=== PATIENT | female | born 1975 | race Caucasian/White ===

== ENCOUNTER 2016-12-11 12:16 | Emergency (ER) | payer SELFPAY ==
[2016-12-11] MEDS ORDERED: Adacel (T-DAP) 0.5 ML VIAL ONE (13:06)
[2016-12-11] MEDS ORDERED: Cephalexin 250 MG CAP ONE (13:16)
[2016-12-11] MEDS ORDERED: Acetaminophen/Codeine 30-300mg Tablet ONE (13:17)
--- NOTE | 2016-12-11 13:36 | RAD ---
EXAM: TWO VIEWS CALVARIUM: HISTORY: Forehead laceration. Hit right forehead on carport. Rust irrigated from the laceration. FINDINGS: Adequate aeration of the sinuses and mastoid air cells Visualized calvarium was intact. There is anterior soft tissue swelling. Radiopaque foreign bodies are not appreciated. IMPRESSION: No radiopaque foreign body. POS: [facility]
== END 2016-12-11 13:50 | disposition home or self-care (01) ==
LOC: NAV ERS 12:16
DX: S01.81XA Laceration without foreign body of other part of head, initial encounter (principal); J45.909 Unspecified asthma, uncomplicated; F17.210 Nicotine dependence, cigarettes, uncomplicated; Z23 Encounter for immunization; W22.8XXA Striking against or struck by other objects, initial encounter
CPT/HCPCS: 12013; 70250; 90471; 90715

== ENCOUNTER 2016-12-15 14:54 | Emergency (ER) | payer SELFPAY ==
[2016-12-15 16:02] LABS: #Basophils 0.1 thou/uL (0.0-0.2); #Eosinphils 0.2 thou/uL (0.0-0.7); #Monocytes 0.6 thou/uL (0.11-0.59); #Neutrophils 7.1 thou/uL (1.40-6.50); %Basophils 0.5 % (0.0-1.0); %Eosinophils 1.9 % (0.0-10.0); %Lymphocytes 19.7 % (21.0-51.0); %Monocytes 6.3 % (0.0-10.0); %Neutrophils 71.6 % (42.0-75.0); Hemoglobin 14.6 g/dL (12.0-16.0); Mean Corpuscular HGB CONC 33.3 g/dL (32.0-36.0); Mean Corpuscular Hemoglobin 31.1 pg (27.0-31.0); Mean Corpuscular Volume 93.4 fl (81.0-99.0); Mean Platelet Volume 5.6 fL (7.4-10.4); Platelet Count 363 thou/uL (130-400); Red Blood Cell (RBC) Count 4.71 mill/uL (4.20-5.40); White Blood Cell (WBC) Count 9.9 thou/uL (4.8-10.8)
[2016-12-15] MEDS ORDERED: Fentanyl 100 MCG/2 ML VIAL ONE (16:02)
[2016-12-15] MEDS ORDERED: Clindamycin 300 MG/2 ML VIAL ONE ×2 (16:03→16:07)
[2016-12-15] MEDS ORDERED: Ondansetron HCl/PF 4 MG/2 ML Vial ONE (16:03)
[2016-12-15] MEDS ORDERED: Sodium Chloride 0.9% 0 ML ONE (16:08)
[2016-12-15] MEDS ORDERED: Sodium Chloride 0.9% 100 ML ONE (16:09)
[2016-12-15 16:15] LABS: ALT (SGPT) 53 U/L (8-55); AST (SGOT) 34 U/L (5-34); Albumin 4.2 g/dL (3.5-5.0); Alkaline Phosphatase 67 U/L (40-150); Anion Gap 12 mmol/L (10-20); BUN (Urea Nitrogen) 11 mg/dL (7.0-18.7); Bilirubin, Total 0.4 mg/dL (0.2-1.2); Calc. Creatinine Clearance 0 mL/min (70-130); Calcium 9.1 mg/dL (7.8-10.44); Carbon Dioxide 24 mmol/L (22-29); Chloride 108 mmol/L (98-107); Estimated GFR-MDRD Greater than 90; Globulin 3.1 g/dL (2.4-3.5); Glucose 107 mg/dL (70-105); Potassium 3.9 mmol/L (3.5-5.1); Protein, Total 7.3 g/dL (6.0-8.3); Sodium 140 mmol/L (136-145)
--- NOTE | 2016-12-15 16:20 | CT ---
CT HEAD WITHOUT IV CONTRAST 12/15/16 HISTORY: Right forehead wound check. Patient is having headache with nausea. Patient walked into a carport fi ve days ago and hitting head. Patient said 12 hours ago he got out of bed and passed out. FINDINGS: There is a tiny low density focus in the left lentiform nucleus near the external capsule which may actually represent volume averaging and artifactual. There is no evidence of an acute cortical infar ction, hemorrhage, mass effect, or midline shift. Ventricle is normal in size, shape and position. M inimal mucosal thickening is present within sphenoid sinus. Mastoid air cells are clear. Calvarial s tructures are intact and there is no evidence of a fracture. Subcutaneous soft tissue swelling is se en in the right lateral supraorbital location near the level of the orbital roof. IMPRESSION: 1. No acute intracranial abnormalities demonstrated. 2. Scalp soft tissue swelling in the right lateral supraorbital location. POS: [facility]
[2016-12-15] MEDS ORDERED: HYDROcodone/Acetaminophen 10/325 mg Tablet ONE (16:49)
== END 2016-12-15 17:08 | disposition home or self-care (01) ==
LOC: NAV ERS 14:54
DX: S06.0X9A Concussion with loss of consciousness of unspecified duration, initial encounter (principal); L02.01 Cutaneous abscess of face; L03.211 Cellulitis of face; J45.909 Unspecified asthma, uncomplicated; F17.210 Nicotine dependence, cigarettes, uncomplicated; W22.8XXA Striking against or struck by other objects, initial encounter; Y93.02 Activity, running
CPT/HCPCS: 36415; 70450; 80053; 85025; 87070; 87077; 87186; 87205; 96365; 96375; J2405; J3010; J3490; J7050

== ENCOUNTER 2017-05-17 18:39 | Emergency (ER) | payer OTHER, SELFPAY ==
[~2017-05-17 18:39] MED LIST: Iopamidol 370 76% 100 ML VIAL ONE
[2017-05-17 19:02] LABS: Bilirubin Negative (Negative); Blood, Urine Negative (Negative); Clarity Clear (Clear); Glucose, Urine (Dipstick) Negative (Negative); Leukocyte Negative (Negative); Nitrite Negative (Negative); Protein, Urine (Dipstick) Negative (Neg-Trace); Specific Gravity, Urine 1.025 (1.005-1.030); pH, Urine 7.5 (5.0-9.0)
[2017-05-17 19:48] LABS: #Basophils 0.1 thou/uL (0.0-0.2); #Eosinphils 0.2 thou/uL (0.0-0.7); #Neutrophils 5.9 thou/uL (1.40-6.50); %Eosinophils 2.2 % (0.0-10.0); %Lymphocytes 29.7 % (21.0-51.0); %Monocytes 9.5 % (0.0-10.0); %Neutrophils 57.7 % (42.0-75.0); Hemoglobin 13.4 g/dL (12.0-16.0); Mean Corpuscular HGB CONC 34.1 g/dL (32.0-36.0); Mean Corpuscular Hemoglobin 31.3 pg (27.0-31.0); Mean Corpuscular Volume 91.7 fl (81.0-99.0); Mean Platelet Volume 6.3 fL (7.4-10.4); Platelet Count 329 thou/uL (130-400); RBC Distribution Width 11.1 % (11.5-14.5); Red Blood Cell (RBC) Count 4.28 mill/uL (4.20-5.40); White Blood Cell (WBC) Count 10.2 thou/uL (4.8-10.8)
[2017-05-17] MEDS ORDERED: Morphine 4 MG/ML Carpuject ONE (19:49)
[2017-05-17] MEDS ORDERED: Sodium Chloride 0.9% 1,000 ML ONE ×2 (19:49→22:15)
[2017-05-17] MEDS ORDERED: Pantoprazole 40 MG VIAL ONE (19:49)
[2017-05-17] MEDS ORDERED: Ondansetron HCl/PF 4 MG/2 ML Vial ONE (19:49)
[2017-05-17 20:01] LABS: Pregnancy Test - Urine (BHCG) Negative (Negative); Pregu Control Bar Appear? YES (CONTROL BAR); Specific Gravity 1.025 (1.002-1.036)
[2017-05-17 20:02] LABS: Pregu Control Background? CLEAR/WHITE (CLR/WHITE)
[2017-05-17 20:03] LABS: ALT (SGPT) 17 U/L (8-55); AST (SGOT) 16 U/L (5-34); Alkaline Phosphatase 52 U/L (40-150); Anion Gap 14 mmol/L (10-20); BUN (Urea Nitrogen) 15 mg/dL (7.0-18.7); Bilirubin, Total 0.2 mg/dL (0.2-1.2); Calc. Creatinine Clearance 0 mL/min (70-130); Chloride 107 mmol/L (98-107); Estimated GFR-MDRD Greater than 90; Globulin 2.9 g/dL (2.4-3.5); Glucose 71 mg/dL (70-105); Lipase 30 U/L (8-78); Potassium 3.6 mmol/L (3.5-5.1); Protein, Total 6.9 g/dL (6.0-8.3); Sodium 139 mmol/L (136-145)
[2017-05-17 20:04] LABS: Carbon Dioxide 22 mmol/L (22-29)
[2017-05-17 20:06] LABS: CKMB 0.7 ng/mL (0-6.6); Troponin I Less than 0.010 ng/mL (< 0.028)
[2017-05-17] MEDS ORDERED: Ketorolac Tromethamine 30 MG/ML VIAL ONE (21:30)
--- NOTE | 2017-05-17 23:50 | CT ---
EXAM ABDOMEN CT WITH CONTRAST PELVIC CT WITH CONTRAST 05/17/17 HISTORY: Right sided abdominal pain, worsening this afternoon. COMPARISON: None. TECHNIQUE: Abdomen and pelvic CT are performed with IV and enteric contrast. Coronal reformatted image are submi tted for interpretation. FINDINGS: ABDOMEN CT: Scarring or atelectasis in the lung bases. Heart size is within normal limits. No significant pericar dial fluid. The visualized aorta has a normal caliber. No periaortic fat stranding. Gallbladder is not appreciated. Intra and extrahepatic portal vein is patent. Calcified granulomas in the liver. Fatty infiltration of the liver near the falciform ligament. Splee n, and adrenal glands have appropriate enhancement. Nonspecific calcification near the proximal body of the pancreas. No evidence of peripancreatic inflammatory change. No gastrohepatic, retrocrural or periportal lymphadenopathy. No mesenteric mass, lymphadenopathy, free air of free fluid. Gastric mucosa, duodenum, and small bowel loops have an overall normal appearance and configuration. Ileocecal junction is normal. Normal caliber appendix. Scattered fecal material in a nondistended, no ndilated colon. No colon obstruction. Symmetric enhancement of the kidneys. Bilaterally, no obstructive uropathy. PELVIC CT: Urinary bladder is unremarkable. The uterus is surgically absent. No pelvic mass, lymphadenopathy, fr ee air or free fluid. Left ovarian follicle/cyst is noted, measuring 1.9 cm. Right ovarian cyst/folli kannan is also present measuring 1.4 cm. No lytic or blastic lesions in the osseous structures. Bilateral pars defects at L5 are noted. IMPRESSION: 1. No acute abnormality in the abdomen or pelvis. 2. Bilateral ovarian follicles/cysts. Followup ultrasound in 8 to 10 weeks to ensure resolution. POS: [facility]
== END 2017-05-17 23:07 | disposition home or self-care (01) ==
LOC: NAV ERS 18:39
DX: R10.11 Right upper quadrant pain (principal); J45.909 Unspecified asthma, uncomplicated; F17.210 Nicotine dependence, cigarettes, uncomplicated
CPT/HCPCS: 74177; 80053; 81003; 81025; 82553; 83605; 83690; 84484; 85025; 93005; 96361; 96374; 96375; C9113; J1885; J2270; J2405; J7050

== ENCOUNTER 2017-09-10 08:23 | Emergency (ER) | payer SELFPAY ==
--- NOTE | 2017-09-10 10:17 | RAD ---
THREE VIEWS LEFT HAND: HISTORY: Trauma. Injured 2nd digit 1 month ago. COMPARISON: None. FINDINGS: Joint space is preserved. No fracture. No cortical irregularity or periosteal reaction. IMPRESSION: Unremarkable left hand 3 views. POS: [facility]
== END 2017-09-10 09:50 | disposition home or self-care (01) ==
LOC: NAV ERS 08:23
DX: M19.142 Post-traumatic osteoarthritis, left hand (principal); T14.90XS Injury, unspecified, sequela; J45.909 Unspecified asthma, uncomplicated; F17.210 Nicotine dependence, cigarettes, uncomplicated; W22.03XS Walked into furniture, sequela

== ENCOUNTER 2017-09-12 20:18 | Emergency (ER) | payer SELFPAY ==
[2017-09-12] MEDS ORDERED: Ondansetron HCl/PF 4 MG/2 ML Vial ONE (20:51)
[2017-09-12] MEDS ORDERED: Morphine 4 MG/ML Carpuject ONE (20:51)
[2017-09-12 21:04] LABS: #Eosinphils 0.2 thou/uL (0.0-0.7); #Lymphocytes 2.6 thou/uL (1.20-3.40); #Monocytes 0.8 thou/uL (0.11-0.59); #Neutrophils 7.1 thou/uL (1.40-6.50); %Basophils 0.4 % (0.0-1.0); %Eosinophils 1.6 % (0.0-10.0); %Monocytes 7.1 % (0.0-10.0); %Neutrophils 66.9 % (42.0-75.0); Hemoglobin 14.4 g/dL (12.0-16.0); Mean Corpuscular HGB CONC 32.6 g/dL (32.0-36.0); Mean Corpuscular Hemoglobin 30.3 pg (27.0-31.0); Mean Corpuscular Volume 92.8 fl (81.0-99.0); Mean Platelet Volume 5.6 fL (7.4-10.4); Platelet Count 409 thou/uL (130-400); RBC Distribution Width 11.8 % (11.5-14.5); Red Blood Cell (RBC) Count 4.74 mill/uL (4.20-5.40); White Blood Cell (WBC) Count 10.6 thou/uL (4.8-10.8)
[2017-09-12 21:13] LABS: Bilirubin Moderate (Negative); Blood, Urine Negative (Negative); Glucose, Urine (Dipstick) Negative (Negative); Leukocyte Negative (Negative); Nitrite Negative (Negative); Protein, Urine (Dipstick) 30 mg/dL (Neg-Trace); Urobilinogen 0.2 mg/dL (0.2-1.0); pH, Urine 5.5 (5.0-9.0)
[2017-09-12 21:14] LABS: Clarity SL HAZY (Clear)
[2017-09-12 21:15] LABS: Pregnancy Test - Urine (BHCG) Negative (Negative); Pregu Control Background? CLEAR/WHITE (CLR/WHITE); Pregu Control Bar Appear? YES (CONTROL BAR); Specific Gravity 1.033 (1.002-1.036)
[2017-09-12 21:16] LABS: Specific Gravity, Urine 1.033 (1.002-1.036)
[2017-09-12 21:19] LABS: ALT (SGPT) 24 U/L (8-55); AST (SGOT) 19 U/L (5-34); Alkaline Phosphatase 52 U/L (40-150); Anion Gap 13 mmol/L (10-20); BUN (Urea Nitrogen) 14 mg/dL (7.0-18.7); Bilirubin, Total 0.2 mg/dL (0.2-1.2); Calc. Creatinine Clearance 0 mL/min (70-130); Calcium 8.8 mg/dL (7.8-10.44); Carbon Dioxide 21 mmol/L (22-29); Chloride 108 mmol/L (98-107); Estimated GFR-MDRD 88; Globulin 2.8 g/dL (2.4-3.5); Glucose 118 mg/dL (70-105); Protein, Total 6.8 g/dL (6.0-8.3); Sodium 138 mmol/L (136-145)
[2017-09-12 21:28] LABS: Bacteria/HPF Rare-Few HPF (None Seen)
[2017-09-12 21:29] LABS: Crystals/HPF 2+ CA OXALATE HPF (Negative)
[2017-09-12 21:37] LABS: CKMB 0.6 ng/mL (0-6.6); Troponin I Less than 0.010 ng/mL (< 0.028)
--- NOTE | 2017-09-12 22:07 | RAD ---
PORTABLE CHEST: 09/12/2017 PROVIDED CLINICAL HISTORY: Chest pain. FINDINGS: The cardiac and mediastinal silhouette is within normal limits. The lungs appear clear. There is no pleural fluid or pneumothorax apparent. IMPRESSION: No evidence for an acute cardiopulmonary process. POS: [facility]
[2017-09-12] MEDS ORDERED: Lorazepam 2 MG/ML VIAL ONE (22:30)
== END 2017-09-13 00:55 | disposition home or self-care (01) ==
LOC: NAV ERS 20:18
DX: R07.2 Precordial pain (principal); F17.210 Nicotine dependence, cigarettes, uncomplicated; J45.909 Unspecified asthma, uncomplicated
CPT/HCPCS: 71045; 80053; 81003; 81015; 81025; 82553; 84484; 85025; 93005; 96374; 96375; J2060; J2270; J2405

== ENCOUNTER 2017-10-07 22:45 | Emergency (ER) | payer SELFPAY ==
[2017-10-07] MEDS ORDERED: Sodium Chloride 0.9% 1,000 ML ONE (23:09)
[2017-10-07] MEDS ORDERED: Ondansetron HCl/PF 4 MG/2 ML Vial ONE ×2 (23:21→23:47)
[2017-10-07 23:39] LABS: BHCG - Serum Negative (NEGATIVE); Pregs Control Bar Appear? YES (CONTROL BAR)
[2017-10-07 23:44] LABS: Band 37 % (5-11); Hemoglobin 16.3 g/dL (12.0-16.0); Lymphocytes 9 % (21-51); MDiff Complete? YES; Mean Corpuscular HGB CONC 32.2 g/dL (32.0-36.0); Mean Corpuscular Hemoglobin 30.2 pg (27.0-31.0); Mean Corpuscular Volume 93.6 fl (81.0-99.0); Mean Platelet Volume 5.6 fL (7.4-10.4); Metamyelocyte 4 % (0-0); Monocytes 5 % (0-10); Neutrophil 45 % (42-75); PLT Morphology Comment Appears Adequate; Platelet Count 436 thou/uL (130-400); RBC Distribution Width 11.5 % (11.5-14.5); RBC Morphology Normal; Red Blood Cell (RBC) Count 5.41 mill/uL (4.20-5.40); White Blood Cell (WBC) Count 25.7 thou/uL (4.8-10.8)
[2017-10-07 23:48] LABS: ALT (SGPT) 24 U/L (8-55); AST (SGOT) 20 U/L (5-34); Albumin 4.3 g/dL (3.5-5.0); Alkaline Phosphatase 54 U/L (40-150); Anion Gap 15 mmol/L (10-20); BUN (Urea Nitrogen) 12 mg/dL (7.0-18.7); Bilirubin, Total 0.3 mg/dL (0.2-1.2); Calc. Creatinine Clearance 0 mL/min (70-130); Calcium 9.3 mg/dL (7.8-10.44); Carbon Dioxide 20 mmol/L (22-29); Chloride 107 mmol/L (98-107); Estimated GFR-MDRD Greater than 90; Glucose 104 mg/dL (70-105); Lipase 53 U/L (8-78); Potassium 3.9 mmol/L (3.5-5.1); Protein, Total 7.3 g/dL (6.0-8.3); Sodium 138 mmol/L (136-145)
[2017-10-08] MEDS ORDERED: Metoclopramide HCl 10 MG/2 ML VIAL ONE (00:56)
[2017-10-08] MEDS ORDERED: Sodium Chloride 0.9% 1,000 ML ONE (01:10)
== END 2017-10-08 02:07 | disposition home or self-care (01) ==
LOC: NAV ERS 22:45
DX: K52.9 Noninfective gastroenteritis and colitis, unspecified (principal); J45.909 Unspecified asthma, uncomplicated; F17.210 Nicotine dependence, cigarettes, uncomplicated
CPT/HCPCS: 80053; 83690; 84703; 85025; 96361; 96374; 96375; J2405; J2765; J7050

== ENCOUNTER 2018-01-02 13:31 | Emergency (ER) | payer SELFPAY | END 2018-01-02 14:28 | disposition home or self-care (01) | LOC: NAV ERS 13:31 | DX: M54.2 Cervicalgia (principal); G89.29 Other chronic pain; J45.909 Unspecified asthma, uncomplicated; F17.210 Nicotine dependence, cigarettes, uncomplicated | CPT/HCPCS: 96372; J2270 ==

== ENCOUNTER 2018-02-08 20:08 | Emergency (ER) | payer SELFPAY ==
[2018-02-08] MEDS ORDERED: traMADol HCl 50 MG TAB ONE (20:57)
[2018-02-08] MEDS ORDERED: Ondansetron ODT 4 MG TAB ONE (20:57)
[2018-02-08] MEDS ORDERED: Ketorolac Tromethamine 60 MG/2 ML VIAL ONE (20:57)
--- NOTE | 2018-02-08 21:45 | CT ---
CT LUMBAR SPINE WITHOUT CONTRAST 02/08/18 HISTORY: Patient woke up one day with a pinched nerve. Patient went to urgent care yesterday. Received medicat ion. Worsening symptoms. Pain. FINDINGS: Retroperitoneal structures are unremarkable. The visualized alimentary canal is unremarkable. Hypoden sity in the right adnexa, incompletely evaluated measures 3.5 cm and has an attenuation coefficient o f 9 Hounsfield units. A right ovarian cyst is suspected. There is no abnormality with regards to the presacral fat. Sacral ala are preserved. Sacroiliac joints are patent and symmetric. The spinous process and transverse processes are intact. Lumbar spine vertebral body height is mainta ined. There is no lumbar spine fracture. There are bilateral pars defects at L5, chronic. There is 3 mm of anterolisthesis of L5 upon S1. Limited evaluation of the contents of the central spinal canal and neural foramina due to technique. T11-T12 and T12-L1: No high grade central canal stenosis or high grade foraminal narrowing. L1-L2: No high grade central canal stenosis or high grade foraminal narrowing. L2-L3: No high grade central canal stenosis or high grade foraminal narrowing. L3-L4: No high grade central canal stenosis or high grade foraminal narrowing. L4-L5: No high grade central canal stenosis or high grade foraminal narrowing. L5-S1: No high grade central canal stenosis. Right neural foramen is patent. There is moderate left f oraminal narrowing predominantly due to disc material. Disc material also abuts the extraforaminal le ft L5 nerve root. IMPRESSION: 1. Bilateral pars defects at L5 with grade I anterolisthesis of L5 upon S1. 2. No significant central canal stenosis. There is moderate left foraminal narrowing at L5-S1 du e to disc material. 3. Right hemipelvic hypodensity likely representing an ovarian cyst. POS: [facility]
== END 2018-02-08 22:25 | disposition home or self-care (01) ==
LOC: NAV ERS 20:08
DX: M51.36 Other intervertebral disc degeneration, lumbar region (principal); M43.06 Spondylolysis, lumbar region; J45.909 Unspecified asthma, uncomplicated; F17.210 Nicotine dependence, cigarettes, uncomplicated; Z79.899 Other long term (current) drug therapy
CPT/HCPCS: 72131; 96372; J1885; J2270; Q0162

== ENCOUNTER 2018-04-25 08:22 | Emergency (ER) | payer SELFPAY | END 2018-04-25 08:53 | disposition home or self-care (01) | LOC: NAV ERS 08:22 | DX: R05 Cough (principal); J45.909 Unspecified asthma, uncomplicated; F17.210 Nicotine dependence, cigarettes, uncomplicated; Z79.51 Long term (current) use of inhaled steroids | CPT/HCPCS: 99283 ==

== ENCOUNTER 2018-08-13 17:23 | Emergency (ER) | payer OTHER ==
--- NOTE | 2018-08-13 18:15 | RAD ---
4 views right elbow: 08/13/2018 COMPARISON: None HISTORY: Injury, trauma, pain FINDINGS: No elbow joint effusion, displaced fracture, or evidence of dislocation. IMPRESSION: No acute findings.
--- NOTE | 2018-08-13 18:17 | RAD ---
Right hand 3 views: 08/13/2018 COMPARISON: None HISTORY: Fall, trauma, pain FINDINGS: No fracture or evidence of dislocation. No radiopaque foreign body or subcutaneous gas. IMPRESSION: No acute osseous abnormality.
== END 2018-08-13 18:38 | disposition home or self-care (01) ==
LOC: NAV ERS 17:23
DX: S50.01XA Contusion of right elbow, initial encounter (principal); S60.221A Contusion of right hand, initial encounter; F17.210 Nicotine dependence, cigarettes, uncomplicated; W19.XXXA Unspecified fall, initial encounter

== ENCOUNTER 2018-10-31 17:28 | Emergency (ER) | payer OTHER, SELFPAY ==
--- NOTE | 2018-10-31 17:53 | RAD ---
XR Hand Rt 3 View STANDARD: 10/31/2018 5:36 PM CLINICAL INDICATION: Injury with pain COMPARISON: 08/13/2018 FINDINGS: Fracture:No fracture. Arthropathy:None of significance. Incidental findings:None of significance. IMPRESSION: 1. No acute osseous abnormality.
== END 2018-10-31 18:03 | disposition home or self-care (01) ==
LOC: NAV ERS 17:28
DX: S63.91XA Sprain of unspecified part of right wrist and hand, initial encounter (principal); J45.909 Unspecified asthma, uncomplicated; F17.210 Nicotine dependence, cigarettes, uncomplicated; W19.XXXA Unspecified fall, initial encounter

== ENCOUNTER 2018-11-21 17:14 | Emergency (ER) | payer SELFPAY ==
[2018-11-21 17:35] LABS: #Basophils 0.1 thou/uL (0.0-0.2); #Eosinphils 0.2 thou/uL (0.0-0.7); #Lymphocytes 2.3 thou/uL (1.20-3.40); #Monocytes 0.6 thou/uL (0.11-0.59); #Neutrophils 4.9 thou/uL (1.40-6.50); %Basophils 0.9 % (0.0-1.0); %Eosinophils 2.3 % (0.0-10.0); %Lymphocytes 28.3 % (21.0-51.0); %Monocytes 7.3 % (0.0-10.0); %Neutrophils 61.2 % (42.0-75.0); Hemoglobin 13.2 g/dL (12.0-16.0); Mean Corpuscular HGB CONC 32.1 g/dL (32.0-36.0); Mean Corpuscular Hemoglobin 30.2 pg (27.0-31.0); Mean Corpuscular Volume 93.9 fL (78.0-98.0); Mean Platelet Volume 5.3 fL (7.4-10.4); Platelet Count 357 thou/uL (130-400); RBC Distribution Width 11.7 % (11.5-14.5); Red Blood Cell (RBC) Count 4.38 mill/uL (4.20-5.40)
[2018-11-21] MEDS ORDERED: Sodium Chloride 0.9% 1,000 ML ONE ×2 (17:46→19:01)
[2018-11-21] MEDS ORDERED: Nitroglycerin 2% Ointment 1 INCH/1 GM Packet ONE (17:46)
[2018-11-21] MEDS ORDERED: Acetaminophen 500 MG TAB ONE (17:46)
[2018-11-21 18:02] LABS: ALT (SGPT) 32 U/L (8-55); AST (SGOT) 26 U/L (5-34); Albumin 4.1 g/dL (3.5-5.0); Alkaline Phosphatase 54 U/L (40-150); Anion Gap 15 mmol/L (10-20); BUN (Urea Nitrogen) 15 mg/dL (7.0-18.7); Bilirubin, Total 0.3 mg/dL (0.2-1.2); Calc. Creatinine Clearance 0 mL/min (70-130); Calcium 9.3 mg/dL (7.8-10.44); Carbon Dioxide 23 mmol/L (22-29); Chloride 106 mmol/L (98-107); Estimated GFR-MDRD 85; Globulin 2.2 g/dL (2.4-3.5); Glucose 97 mg/dL (70-105); Potassium 3.8 mmol/L (3.5-5.1); Protein, Total 6.3 g/dL (6.0-8.3); Sodium 140 mmol/L (136-145)
--- NOTE | 2018-11-21 18:17 | RAD ---
EXAM: CHEST ONE VIEW: 11/21/18 HISTORY: Chest pain. COMPARISON: 09/12/17. FINDINGS: The left costophrenic angle is not completely included. Heart size is normal. The lungs are clear. No pneumonia, edema, pleural effusions, or other acute process. IMPRESSION: No acute intrathoracic disease. Stable from prior study. POS: [facility]
[2018-11-21] MEDS ORDERED: Morphine 4 MG/ML VIAL ONE (19:01)
[2018-11-21] MEDS ORDERED: Famotidine/PF 20 mg/2ml Vial ONE (19:15)
[2018-11-21] MEDS ORDERED: Lidocaine 2% Jelly 30 GM TUBE ONE (19:15)
[2018-11-21] MEDS ORDERED: Mag-Al Plus 1200 MG/1200 MG/120 MG/30 ML UDCUP ONE (19:15)
[2018-11-21] MEDS ORDERED: Lidocaine Viscous Sol 2% 15 ml UD Cup ONE (19:17)
== END 2018-11-21 19:29 | disposition short-term general hospital (02) ==
LOC: NAV ERS 17:14
DX: R07.2 Precordial pain (principal); I10 Essential (primary) hypertension; R42 Dizziness and giddiness; J45.909 Unspecified asthma, uncomplicated; F17.210 Nicotine dependence, cigarettes, uncomplicated
CPT/HCPCS: 71045; 80053; 84484; 85025; 85379; 93005; 94760; 96361; 96374; 96375; J2270; J7050; S0028

== ENCOUNTER 2019-01-23 18:46 | Emergency (ER) | payer SELFPAY ==
[2019-01-23] MEDS ORDERED: Ketorolac Tromethamine 60 MG/2 ML VIAL ONE (19:09)
--- NOTE | 2019-01-23 19:12 | RAD ---
EXAM: Left hip: 2 views INDICATIONS: Hip injury COMPARISON: None. FINDINGS: No fracture or dislocation. No osseous abnormality identified. IMPRESSION: No acute finding
== END 2019-01-23 19:40 | disposition home or self-care (01) ==
LOC: NAV ERS 18:46
DX: M25.552 Pain in left hip (principal); J45.909 Unspecified asthma, uncomplicated; F17.210 Nicotine dependence, cigarettes, uncomplicated; X50.9XXA Other and unspecified overexertion or strenuous movements or postures, initial encounter
CPT/HCPCS: 96372; J1885

== ENCOUNTER 2019-03-03 08:26 | Emergency (ER) | payer SELFPAY | END 2019-03-03 10:09 | disposition home or self-care (01) | LOC: NAV ERS 08:26 | DX: J11.1 Influenza due to unidentified influenza virus with other respiratory manifestations (principal); J45.909 Unspecified asthma, uncomplicated; F17.210 Nicotine dependence, cigarettes, uncomplicated ==

== ENCOUNTER 2019-05-19 21:20 | Emergency (ER) | payer SELFPAY ==
[2019-05-19] MEDS ORDERED: Ketorolac Tromethamine 60 MG/2 ML VIAL ONE (21:34)
== END 2019-05-19 22:00 | disposition home or self-care (01) ==
LOC: NAV ERS 21:20
DX: M77.11 Lateral epicondylitis, right elbow (principal); F17.210 Nicotine dependence, cigarettes, uncomplicated; J45.909 Unspecified asthma, uncomplicated
CPT/HCPCS: 96372; 99283; J1885

== ENCOUNTER 2019-05-24 14:40 | Emergency (ER) | payer SELFPAY ==
[2019-05-24] MEDS ORDERED: Aspirin Chewable 81 MG TAB ONE (14:59)
[2019-05-24 15:31] LABS: #Basophils 0.1 thou/uL (0.0-0.2); #Eosinphils 0.2 thou/uL (0.0-0.7); #Lymphocytes 2.3 thou/uL (1.20-3.40); #Monocytes 0.4 thou/uL (0.11-0.59); #Neutrophils 5.2 thou/uL (1.40-6.50); %Basophils 0.9 % (0.0-1.0); %Lymphocytes 27.7 % (21.0-51.0); %Monocytes 5.3 % (0.0-10.0); %Neutrophils 63.2 % (42.0-75.0); Mean Corpuscular HGB CONC 32.8 g/dL (32.0-36.0); Mean Corpuscular Hemoglobin 30.9 pg (27.0-31.0); Mean Corpuscular Volume 94.2 fL (78.0-98.0); Mean Platelet Volume 5.4 fL (7.4-10.4); Platelet Count 380 thou/uL (130-400); RBC Distribution Width 11.6 % (11.5-14.5); Red Blood Cell (RBC) Count 4.53 mill/uL (4.20-5.40); White Blood Cell (WBC) Count 8.2 thou/uL (4.8-10.8)
[2019-05-24] MEDS ORDERED: Acetaminophen 325 MG TAB ONE (15:34)
--- NOTE | 2019-05-24 15:43 | RAD ---
EXAM: Chest one view: HISTORY: Chest pain COMPARISON: 11/21/2018 FINDINGS: Heart size: Within normal limits. Lungs: Clear of acute process. No evidence for confluent pneumonia, pleural effusion, acute edema, or pneumothorax, or other signifi cant acute process. IMPRESSION: No significant acute intrathoracic disease.
[2019-05-24 15:47] LABS: ALT (SGPT) 29 U/L (8-55); AST (SGOT) 26 U/L (5-34); Albumin 4.5 g/dL (3.5-5.0); Alkaline Phosphatase 54 U/L (40-110); Anion Gap 15 mmol/L (10-20); BUN (Urea Nitrogen) 9 mg/dL (7.0-18.7); Bilirubin, Total 0.2 mg/dL (0.2-1.2); Calc. Creatinine Clearance 0 mL/min (70-130); Calcium 9.5 mg/dL (7.8-10.44); Carbon Dioxide 22 mmol/L (22-29); Chloride 108 mmol/L (98-107); Estimated GFR-MDRD 85; Globulin 2.7 g/dL (2.4-3.5); Glucose 106 mg/dL (70-105); Lipase 45 U/L (8-78); Potassium 4.1 mmol/L (3.5-5.1); Protein, Total 7.2 g/dL (6.0-8.3); Sodium 141 mmol/L (136-145)
[2019-05-24] MEDS ORDERED: Ketorolac Tromethamine 30 MG/ML VIAL ONE (17:43)
[2019-05-24 18:30] LABS: Troponin I Less than 0.010 ng/mL (< 0.028)
== END 2019-05-24 18:53 | disposition home or self-care (01) ==
LOC: NAV ERS 14:40
DX: R07.9 Chest pain, unspecified (principal); R06.00 Dyspnea, unspecified; R79.89 Other specified abnormal findings of blood chemistry; J45.909 Unspecified asthma, uncomplicated; F17.210 Nicotine dependence, cigarettes, uncomplicated
CPT/HCPCS: 71045; 80053; 83690; 83880; 84484; 85025; 85379; 93005; 96374; J1885

== ENCOUNTER 2019-07-01 16:23 | Emergency (ER) | payer OTHER, SELFPAY ==
--- NOTE | 2019-07-01 17:22 | RAD ---
XR Chest Pa Lat STANDARD History: Cough Comparison: Radiograph May 24, 2019 Findings: Lungs are clear. No pneumothorax. No effusion. Cardiac silhouette and mediastinal contours are within normal limits. No acute osseous abnormality. Low-grade levoscoliosis. Impression: No acute intrathoracic abnormality.
== END 2019-07-01 17:54 | disposition home or self-care (01) ==
LOC: NAV ERS 16:23
DX: J20.9 Acute bronchitis, unspecified (principal); F17.210 Nicotine dependence, cigarettes, uncomplicated; Z87.01 Personal history of pneumonia (recurrent)
CPT/HCPCS: 71046

== ENCOUNTER 2019-07-09 17:32 | Emergency (ER) | payer MEDICARE, OTHER ==
[2019-07-09] MEDS ORDERED: Ventolin HFA Inhaler 60 PUFF INHALER ONE (18:11)
[2019-07-09] MEDS ORDERED: Sodium Chloride 0.9% 1,000 ML ONE (18:12)
[2019-07-09] MEDS ORDERED: Aspirin Chewable 81 MG TAB ONE (18:27)
[2019-07-09 18:32] LABS: Bilirubin Negative (Negative); Blood, Urine Trace (Negative); Clarity Clear (Clear); Glucose, Urine (Dipstick) Negative (Negative); Leukocyte Negative (Negative); Nitrite Negative (Negative); Protein, Urine (Dipstick) Negative (Neg-Trace); Urobilinogen 0.2 mg/dL (Less than 2)
--- NOTE | 2019-07-09 18:32 | RAD ---
RADIOGRAPH CHEST 1 VIEW: 07/09/19, 6:22 P.M. HISTORY: 43-year-old female with dyspnea and mid sternal chest pain with productive cough. FINDINGS: There are no air space densities, pulmonary edema, pneumothorax, or cardiomegaly. The lateral costop hrenic angles are sharp. IMPRESSION: No acute cardiopulmonary findings. jn [] POS: [facility]
[2019-07-09 18:33] LABS: ALT (SGPT) 31 U/L (8-55); AST (SGOT) 19 U/L (5-34); Albumin 4.3 g/dL (3.5-5.0); Alkaline Phosphatase 60 U/L (40-110); Anion Gap 15 mmol/L (10-20); BUN (Urea Nitrogen) 15 mg/dL (7.0-18.7); Bilirubin, Total 0.4 mg/dL (0.2-1.2); Calc. Creatinine Clearance 0 mL/min (70-130); Calcium 9.3 mg/dL (7.8-10.44); Carbon Dioxide 24 mmol/L (22-29); Chloride 105 mmol/L (98-107); Estimated GFR-MDRD 76; Glucose 125 mg/dL (70-105); Potassium 4.2 mmol/L (3.5-5.1); Protein, Total 7.3 g/dL (6.0-8.3); Sodium 140 mmol/L (136-145)
[2019-07-09 18:39] LABS: #Basophils 0.1 thou/uL (0.0-0.2); #Eosinphils 0.2 thou/uL (0.0-0.7); #Lymphocytes 3.3 thou/uL (1.20-3.40); #Monocytes 0.6 thou/uL (0.11-0.59); #Neutrophils 7.1 thou/uL (1.40-6.50); %Basophils 0.5 % (0.0-1.0); %Lymphocytes 29.2 % (21.0-51.0); %Monocytes 5.4 % (0.0-10.0); %Neutrophils 62.8 % (42.0-75.0); Mean Corpuscular Hemoglobin 31.6 pg (27.0-31.0); Mean Corpuscular Volume 95.8 fL (78.0-98.0); Mean Platelet Volume 5.3 fL (7.4-10.4); Platelet Count 395 thou/uL (130-400); RBC Distribution Width 11.8 % (11.5-14.5); Red Blood Cell (RBC) Count 4.74 mill/uL (4.20-5.40); White Blood Cell (WBC) Count 11.3 thou/uL (4.8-10.8)
[2019-07-09 18:40] LABS: RBC/HPF 0-3 HPF (0-3); WBC/HPF 0-3 HPF (0-3)
[2019-07-09 18:41] LABS: Bacteria/HPF Rare-Few HPF (None Seen)
[2019-07-09] MEDS ORDERED: Acetaminophen/Codeine 30-300mg Tablet ONE (18:55)
[2019-07-09] MEDS ORDERED: guaiFENesin 100 MG/5 ML UDCUP ONE (18:55)
[2019-07-09] MEDS ORDERED: Morphine 4 MG/ML VIAL ONE (20:56)
[2019-07-09] MEDS ORDERED: Mag-Al Plus 1200 MG/1200 MG/120 MG/30 ML UDCUP ONE (21:34)
[2019-07-09] MEDS ORDERED: Lidocaine Viscous Sol 2% 15 ml UD Cup ONE (21:34)
--- NOTE | 2019-07-21 06:13 | PQF ---
[facility] POST DISCHARGE CLINICAL DOCUMENTATION IMPROVEMENT CLARIFICATION FORM l Todays Date: 07/18/2019 l Patients Name Yaquelin Delacruz l l Admit Date 07/09/2019 l Disch Date 07/09/2019 Business Analyst Consultant Name Brandon Khurram Email: [email or web address] Cell: [phone] To be completed by Business Analyst Consultant: Present Clinical Indicators - Signs / Symptoms Results and Location in Medical Record [ ] Documentation of: [ ] [ ] Documentation of: [ ] [ ] Documentation of: [ ] [ ] Documentation of: [ ] [ ] Risks [ ] [ ] [ ] Treatment [x] Bronchitis Query for specificity of acute or chronic Bronchitis [ ] [ ] To be completed by Physician: MD Sneed James The documentation in this patients record requires clarification to ensure coding compliance and accuracy. Check the appropriate box and include in your discharge summary. [ ] [ ] [ ] [ ] Please check this box if this does not apply to this patient [ ] Unable to determine [ ] Other diagnosis: Review the following information and exercise your independent professional judgment in responding to the clarification. Based upon the clinical findings, risk factors, and treatment, please clarify if you are treating one of the above probable or suspected diagnoses. Physician Signature: Date Time MTDD
== END 2019-07-09 21:47 | disposition home or self-care (01) ==
LOC: NAV ERS 17:32
DX: J40 Bronchitis, not specified as acute or chronic (principal); K29.70 Gastritis, unspecified, without bleeding; F17.210 Nicotine dependence, cigarettes, uncomplicated; Z87.01 Personal history of pneumonia (recurrent)
CPT/HCPCS: 71045; 80053; 81003; 81015; 83605; 84484; 85025; 87081; 87430; 87804; 93005; 96361; 96374; J2270; J7050; U0001

== ENCOUNTER 2020-08-04 15:06 | Emergency (ER) | payer OTHER ==
[2020-08-04] MEDS ORDERED: Tetracaine HCl 0.5% Ophth Soln 2 ML Bottle ONE (15:18)
[2020-08-04] MEDS ORDERED: Fluorescein Opthalmic Strip ONE (15:18)
== END 2020-08-04 15:55 | disposition home or self-care (01) ==
LOC: NAV ERS 15:06
DX: S05.01XA Injury of conjunctiva and corneal abrasion without foreign body, right eye, initial encounter (principal); F17.210 Nicotine dependence, cigarettes, uncomplicated; X58.XXXA Exposure to other specified factors, initial encounter
CPT/HCPCS: 99283

== ENCOUNTER 2020-11-17 14:02 | Emergency (ER) | payer OTHER ==
[2020-11-18 10:42] LABS: SARS-CoV-2 PCR by NAA DETECTED (NotDetected)
== END 2020-11-17 16:03 | disposition home or self-care (01) ==
LOC: NAV ERS 14:02
DX: U07.1 COVID-19 (principal); J45.909 Unspecified asthma, uncomplicated; F17.210 Nicotine dependence, cigarettes, uncomplicated
CPT/HCPCS: 71046; U0003; U0005

== ENCOUNTER 2020-11-22 10:04 | Emergency (ER) | payer OTHER | END 2020-11-22 10:50 | disposition home or self-care (01) | LOC: NAV ERS 10:04 | DX: M54.5 Low back pain (principal); U07.1 COVID-19; J45.909 Unspecified asthma, uncomplicated; F17.210 Nicotine dependence, cigarettes, uncomplicated | CPT/HCPCS: 99283 ==

== ENCOUNTER 2021-01-24 17:52 | Emergency (ER) | payer OTHER ==
[2021-01-24] MEDS ORDERED: Morphine 4 MG/ML VIAL ONE (18:49)
== END 2021-01-24 19:00 | disposition home or self-care (01) ==
LOC: NAV ERS 17:52
DX: R10.84 Generalized abdominal pain (principal); R11.0 Nausea; F17.210 Nicotine dependence, cigarettes, uncomplicated; J45.909 Unspecified asthma, uncomplicated; Z87.01 Personal history of pneumonia (recurrent)
CPT/HCPCS: 96372; 99283; J2270

== ENCOUNTER 2021-03-08 16:58 | Emergency (ER) | payer OTHER ==
[2021-03-08 18:11] LABS: #Basophils 0.1 thou/uL (0.0-0.2); #Eosinphils 0.2 thou/uL (0.0-0.7); #Lymphocytes 3.2 thou/uL (1.20-3.40); #Monocytes 0.7 thou/uL (0.11-0.59); #Neutrophils 5.4 thou/uL (1.40-6.50); %Basophils 0.8 % (0.0-1.0); %Eosinophils 1.7 % (0.0-10.0); %Lymphocytes 33.6 % (21.0-51.0); %Neutrophils 56.9 % (42.0-75.0); Hemoglobin 15.1 g/dL (12.0-16.0); Mean Corpuscular HGB CONC 33.1 g/dL (32.0-36.0); Mean Corpuscular Hemoglobin 31.9 pg (27.0-31.0); Mean Corpuscular Volume 96.4 fL (78.0-98.0); Mean Platelet Volume 5.7 fL (7.4-10.4); Platelet Count 336 thou/uL (130-400); RBC Distribution Width 11.6 % (11.5-14.5); Red Blood Cell (RBC) Count 4.73 mill/uL (4.20-5.40); White Blood Cell (WBC) Count 9.4 thou/uL (4.8-10.8)
[2021-03-08] MEDS ORDERED: traMADol HCl 50 MG TAB ONE (18:28)
[2021-03-08] MEDS ORDERED: Ketorolac Tromethamine 30 MG/ML VIAL ONE (18:28)
[2021-03-08 18:29] LABS: ALT (SGPT) 30 U/L (8-55); AST (SGOT) 27 U/L (5-34); Alkaline Phosphatase 56 U/L (40-110); Anion Gap 12 mmol/L (10-20); BUN (Urea Nitrogen) 12 mg/dL (7.0-18.7); Bilirubin, Total 0.3 mg/dL (0.2-1.2); Calc. Creatinine Clearance 0 mL/min (70-130); Calcium 8.9 mg/dL (7.8-10.44); Carbon Dioxide 23 mmol/L (22-29); Chloride 107 mmol/L (98-107); Globulin 2.8 g/dL (2.4-3.5); Glucose 93 mg/dL (70-105); Protein, Total 6.8 g/dL (6.0-8.3); Sodium 138 mmol/L (136-145)
[2021-03-08] MEDS ORDERED: Ondansetron PF 4 MG/2 ML Vial ONE (21:33)
[2021-03-08] MEDS ORDERED: Morphine 4 MG/ML VIAL ONE (21:33)
== END 2021-03-08 21:54 | disposition short-term general hospital (02) ==
LOC: NAV ERS 16:58
DX: M79.661 Pain in right lower leg (principal); R79.1 Abnormal coagulation profile; J45.909 Unspecified asthma, uncomplicated; F17.210 Nicotine dependence, cigarettes, uncomplicated
CPT/HCPCS: 71046; 80053; 84484; 85025; 85379; 93005; 96374; 96375; J1885; J2270; J2405

== ENCOUNTER 2021-10-26 09:01 | Emergency (ER) | payer OTHER ==
[2021-10-26] MEDS ORDERED: Ketorolac Tromethamine 60 MG/2 ML VIAL ONE (10:15)
== END 2021-10-26 10:30 | disposition home or self-care (01) ==
LOC: NAV ERS 09:01
DX: S60.222A Contusion of left hand, initial encounter (principal); F17.210 Nicotine dependence, cigarettes, uncomplicated; W31.9XXA Contact with unspecified machinery, initial encounter
CPT/HCPCS: 96372; J1885

== ENCOUNTER 2021-11-13 16:50 | Emergency (ER) | payer OTHER ==
[2021-11-13 17:24] LABS: Bilirubin Small (Negative); Blood, Urine Small (Negative); Clarity Hazy (Clear); Glucose, Urine (Dipstick) Negative (Negative); Ketone, Urine Trace mg/dL (Negative); Leukocyte Negative (Negative); Nitrite Negative (Negative); Protein, Urine (Dipstick) Negative (Neg-Trace); Specific Gravity, Urine 1.028 (1.002-1.036); Urobilinogen 0.2 mg/dL (Less than 2)
[2021-11-13 17:27] LABS: Bacteria/HPF 1+ HPF (None Seen); Mucous/LPF 1+ LPF (<2+)
[2021-11-13] MEDS ORDERED: Sodium Chloride 0.9% 1,000 ML ONE (18:38)
[2021-11-13] MEDS ORDERED: Morphine 4 MG/ML VIAL ONE ×3 (18:38→22:31)
[2021-11-13] MEDS ORDERED: Promethazine HCl 25 MG/ML VIAL ONE (18:38)
[2021-11-13 18:40] LABS: #Eosinphils 0.2 thou/uL (0.0-0.7); #Lymphocytes 2.8 thou/uL (1.20-3.40); #Monocytes 0.7 thou/uL (0.11-0.59); %Basophils 0.5 % (0.0-1.0); %Eosinophils 1.8 % (0.0-10.0); %Lymphocytes 32.5 % (21.0-51.0); %Monocytes 8.4 % (0.0-10.0); %Neutrophils 56.9 % (42.0-75.0); Hemoglobin 14.2 g/dL (12.0-16.0); Mean Corpuscular HGB CONC 31.4 g/dL (32.0-36.0); Mean Corpuscular Hemoglobin 31.1 pg (27.0-31.0); Mean Corpuscular Volume 99.3 fL (78.0-98.0); Mean Platelet Volume 6.2 fL (7.4-10.4); Platelet Count 336 thou/uL (130-400); RBC Distribution Width 12.1 % (11.5-14.5); Red Blood Cell (RBC) Count 4.56 mill/uL (4.20-5.40); White Blood Cell (WBC) Count 8.7 thou/uL (4.8-10.8)
[2021-11-13 18:57] LABS: ALT (SGPT) 36 U/L (8-55); AST (SGOT) 30 U/L (5-34); Albumin 4.1 g/dL (3.5-5.0); Alkaline Phosphatase 65 U/L (40-110); Anion Gap 15 mmol/L (10-20); BUN (Urea Nitrogen) 9 mg/dL (7.0-18.7); Bilirubin, Total 0.6 mg/dL (0.2-1.2); Calc. Creatinine Clearance 0 mL/min (70-130); Calcium 9.4 mg/dL (7.8-10.44); Carbon Dioxide 23 mmol/L (22-29); Chloride 106 mmol/L (98-107); Estimated GFR 98; Glucose 88 mg/dL (70-105); Potassium 3.8 mmol/L (3.5-5.1); Protein, Total 7.1 g/dL (6.0-8.3); Sodium 140 mmol/L (136-145)
== END 2021-11-13 22:42 | disposition home or self-care (01) ==
LOC: NAV ERS 16:50
DX: R10.31 Right lower quadrant pain (principal); F17.210 Nicotine dependence, cigarettes, uncomplicated
CPT/HCPCS: 36415; 74177; 80053; 81003; 81015; 83605; 85025; 96365; 96366; 96375; 96376; J2270; J2550; J7050; Q9967

== ENCOUNTER 2021-12-26 17:52 | Emergency (ER) | payer OTHER ==
[2021-12-26 18:36] LABS: Bilirubin Negative (Negative); Blood, Urine Trace (Negative); Clarity Clear (Clear); Glucose, Urine (Dipstick) Negative (Negative); Ketone, Urine Negative (Negative); Leukocyte Trace (Negative); Nitrite Negative (Negative); Protein, Urine (Dipstick) Negative (Neg-Trace); Specific Gravity, Urine 1.028 (1.002-1.036); Urobilinogen 0.2 mg/dL (Less than 2); pH, Urine 5.5 (5.0-9.0)
[2021-12-26 18:37] LABS: Bacteria/HPF 1+ HPF (None Seen); WBC/HPF 0-3 HPF (0-3)
== END 2021-12-26 18:51 | disposition home or self-care (01) ==
LOC: NAV ERS 17:52
DX: B37.3 Candidiasis of vulva and vagina (principal); F17.210 Nicotine dependence, cigarettes, uncomplicated
CPT/HCPCS: 81003; 81015; 99283

== ENCOUNTER 2022-01-20 22:24 | Emergency (ER) | payer OTHER ==
[2022-01-20 23:22] LABS: #Basophils 0.1 thou/uL (0.0-0.2); #Eosinphils 0.1 thou/uL (0.0-0.7); #Lymphocytes 3.2 thou/uL (1.20-3.40); #Monocytes 0.5 thou/uL (0.11-0.59); #Neutrophils 4.5 thou/uL (1.40-6.50); %Basophils 1.2 % (0.0-1.0); %Eosinophils 1.5 % (0.0-10.0); %Lymphocytes 38.4 % (21.0-51.0); %Monocytes 6.2 % (0.0-10.0); %Neutrophils 52.8 % (42.0-75.0); Hemoglobin 15.6 g/dL (12.0-16.0); Mean Corpuscular HGB CONC 33.9 g/dL (32.0-36.0); Mean Corpuscular Hemoglobin 32.1 pg (27.0-31.0); Mean Corpuscular Volume 94.7 fL (78.0-98.0); Mean Platelet Volume 5.7 fL (7.4-10.4); Platelet Count 369 thou/uL (130-400); RBC Distribution Width 11.7 % (11.5-14.5); Red Blood Cell (RBC) Count 4.86 mill/uL (4.20-5.40); White Blood Cell (WBC) Count 8.4 thou/uL (4.8-10.8)
[2022-01-20 23:37] LABS: ALT (SGPT) 38 U/L (8-55); AST (SGOT) 31 U/L (5-34); Albumin 4.2 g/dL (3.5-5.0); Alkaline Phosphatase 73 U/L (40-110); Anion Gap 17 mmol/L (10-20); BUN (Urea Nitrogen) 10 mg/dL (7.0-18.7); Bilirubin, Total 0.5 mg/dL (0.2-1.2); Calc. Creatinine Clearance 0 mL/min (70-130); Calcium 9.1 mg/dL (7.8-10.44); Carbon Dioxide 18 mmol/L (22-29); Chloride 107 mmol/L (98-107); Estimated GFR 101; Glucose 104 mg/dL (70-105); Lipase 72 U/L (8-78); Potassium 3.7 mmol/L (3.5-5.1); Protein, Total 7.2 g/dL (6.0-8.3); Sodium 138 mmol/L (136-145)
[2022-01-20] MEDS ORDERED: Morphine 4 MG/ML VIAL ONE (23:58)
[2022-01-20] MEDS ORDERED: Sodium Chloride 0.9% 1,000 ML ONE (23:58)
[2022-01-20] MEDS ORDERED: Ondansetron PF 4 MG/2 ML Vial ONE (23:58)
[2022-01-20] MEDS ORDERED: Metoprolol Tartrate 5 MG/5 ML VIAL ONE (23:59)
[2022-01-21 00:18] LABS: Bilirubin Negative (Negative); Blood, Urine Negative (Negative); Clarity Clear (Clear); Glucose, Urine (Dipstick) Negative (Negative); Ketone, Urine Negative (Negative); Leukocyte Negative (Negative); Nitrite Negative (Negative); Protein, Urine (Dipstick) Negative (Neg-Trace); pH, Urine 5.5 (5.0-9.0)
[2022-01-21] MEDS ORDERED: Morphine 2 MG/ML VIAL ONE ×2 (01:14→03:25)
[2022-01-21] MEDS ORDERED: Pantoprazole 40 MG VIAL ONE (03:25)
[2022-01-21] MEDS ORDERED: Mag-Al Plus 1200 MG/1200 MG/120 MG/30 ML UDCUP ONE (03:25)
[2022-01-21] MEDS ORDERED: Lidocaine Viscous Sol 2% 15 ml UD Cup ONE (03:25)
[2022-01-21] MEDS ORDERED: Ondansetron PF 4 MG/2 ML Vial ONE (03:39)
== END 2022-01-21 04:32 | disposition short-term general hospital (02) ==
LOC: NAV ERS 22:24
DX: R10.13 Epigastric pain (principal); J45.909 Unspecified asthma, uncomplicated; F17.210 Nicotine dependence, cigarettes, uncomplicated; Z79.899 Other long term (current) drug therapy
CPT/HCPCS: 74177; 80053; 81003; 83605; 83690; 85025; 96374; 96375; 96376; C9113; J2270; J2405; J7050; Q9967

== ENCOUNTER 2022-03-07 19:46 | Emergency (ER) | payer OTHER ==
[2022-03-07] MEDS ORDERED: Oseltamivir 75 MG CAP ONE (20:08)
== END 2022-03-07 20:12 | disposition home or self-care (01) ==
LOC: NAV ERS 19:46
DX: J11.1 Influenza due to unidentified influenza virus with other respiratory manifestations (principal); F17.210 Nicotine dependence, cigarettes, uncomplicated
CPT/HCPCS: 99283

== ENCOUNTER 2022-03-13 14:11 | Emergency (ER) | payer OTHER ==
[2022-03-13] MEDS ORDERED: predniSONE 20 MG TAB ONE (16:02)
== END 2022-03-13 16:15 | disposition home or self-care (01) ==
LOC: NAV ERS 14:11
DX: J06.9 Acute upper respiratory infection, unspecified (principal); J45.901 Unspecified asthma with (acute) exacerbation; F17.210 Nicotine dependence, cigarettes, uncomplicated; Z79.899 Other long term (current) drug therapy
CPT/HCPCS: 71046; J7512

== ENCOUNTER 2022-04-22 20:27 | Emergency (ER) | payer OTHER | END 2022-04-22 22:19 | disposition home or self-care (01) | LOC: NAV ERS 20:27 | DX: S83.91XA Sprain of unspecified site of right knee, initial encounter (principal); J45.909 Unspecified asthma, uncomplicated; Z79.899 Other long term (current) drug therapy; F17.210 Nicotine dependence, cigarettes, uncomplicated; W01.0XXA Fall on same level from slipping, tripping and stumbling without subsequent striking against object, initial encounter ==

== ENCOUNTER 2022-05-17 13:45 | Emergency (ER) | payer OTHER ==
[2022-05-17 14:21] LABS: #Basophils 0.1 thou/uL (0.0-0.2); #Eosinphils 0.2 thou/uL (0.0-0.7); #Lymphocytes 2.7 thou/uL (1.20-3.40); #Monocytes 0.6 thou/uL (0.11-0.59); #Neutrophils 5.1 thou/uL (1.40-6.50); %Lymphocytes 31.1 % (21.0-51.0); %Monocytes 6.6 % (0.0-10.0); %Neutrophils 59.4 % (42.0-75.0); Hemoglobin 15.4 g/dL (12.0-16.0); Mean Corpuscular HGB CONC 33.4 g/dL (32.0-36.0); Mean Corpuscular Hemoglobin 32.2 pg (27.0-31.0); Mean Corpuscular Volume 96.3 fl (78.0-98.0); Mean Platelet Volume 6.1 fL (7.4-10.4); Platelet Count 382 10x3/uL (130-400); RBC Distribution Width 11.6 % (11.5-14.5); Red Blood Cell (RBC) Count 4.79 mill/uL (4.20-5.40); White Blood Cell (WBC) Count 8.6 10x3/uL (4.8-10.8)
[2022-05-17] MEDS ORDERED: Aspirin Chewable 81 MG TAB ONE (14:32)
[2022-05-17 14:36] LABS: ALT (SGPT) 37 U/L (8-55); AST (SGOT) 27 U/L (5-34); Albumin 4.5 g/dL (3.5-5.0); Alkaline Phosphatase 67 U/L (40-110); Anion Gap 13 mmol/L (10-20); BUN (Urea Nitrogen) 12 mg/dL (7.0-18.7); Bilirubin, Total 0.5 mg/dL (0.2-1.2); Calc. Creatinine Clearance 0 mL/min (70-130); Calcium 9.4 mg/dL (7.8-10.44); Carbon Dioxide 21 mmol/L (22-29); Chloride 109 mmol/L (98-107); Estimated GFR 100; Glucose 96 mg/dL (70-105); Potassium 4.2 mmol/L (3.5-5.1); Protein, Total 7.5 g/dL (6.0-8.3); Sodium 139 mmol/L (136-145)
[2022-05-17] MEDS ORDERED: Nitroglycerin 0.4 MG TAB (25 Tab Bottle) ONE (14:49)
[2022-05-17] MEDS ORDERED: Ketorolac Tromethamine 30 MG/ML VIAL ONE (15:31)
== END 2022-05-17 18:33 | disposition home or self-care (01) ==
LOC: NAV ERS 13:45
DX: R07.89 Other chest pain (principal); F17.210 Nicotine dependence, cigarettes, uncomplicated
CPT/HCPCS: 80053; 84484; 85025; 85379; 86140; 93005; 96374; J1885

== ENCOUNTER 2022-07-18 23:16 | Emergency (ER) | payer OTHER ==
[2022-07-18] MEDS ORDERED: Acetaminophen 500 MG TAB ONE (23:37)
== END 2022-07-19 00:35 | disposition home or self-care (01) ==
LOC: NAV ERS 23:16
DX: S01.81XA Laceration without foreign body of other part of head, initial encounter (principal); J45.909 Unspecified asthma, uncomplicated; F17.210 Nicotine dependence, cigarettes, uncomplicated; W19.XXXA Unspecified fall, initial encounter
CPT/HCPCS: 12013; 70486

== ENCOUNTER 2022-07-22 19:26 | Emergency (ER) | payer OTHER ==
[2022-07-22] MEDS ORDERED: Acetaminophen 500 MG TAB ONE (20:28)
[2022-07-22] MEDS ORDERED: Cyclobenzaprine 10 MG TAB ONE (20:28)
== END 2022-07-22 20:59 | disposition home or self-care (01) ==
LOC: NAV ERS 19:26
DX: S03.40XA Sprain of jaw, unspecified side, initial encounter (principal); R51.9 Headache, unspecified; E11.649 Type 2 diabetes mellitus with hypoglycemia without coma; F17.210 Nicotine dependence, cigarettes, uncomplicated
CPT/HCPCS: 99283